=== PATIENT | female | born 1990 | race Hispanic/Latino ===

== ENCOUNTER 2018-07-01 06:13 | Emergency (ER) | payer OTHER, SELFPAY ==
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
[2018-07-01 07:22] VITALS: TEMP 99; O2SAT 99
[2018-07-01 07:23] VITALS: BP 106/73
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
== END 2018-07-01 07:16 | disposition home or self-care (01) ==
LOC: ER 06:13
DX: S60.221A Contusion of right hand, initial encounter (principal); Y04.2XXA Assault by strike against or bumped into by another person, initial encounter; Y92.009 Unspecified place in unspecified non-institutional (private) residence as the place of occurrence of the external cause
CPT/HCPCS: 99284